=== PATIENT | female | born 2000 | race Caucasian/White ===

== ENCOUNTER → 2023-09-05 | Outpatient (CLI) | payer BC ==
--- NOTE | 2023-09-07 09:11 | MR ---
EXAMINATION TYPE: MR lumbar spine wo con DATE OF EXAM: 09/05/2023 9:05 PM CLINICAL INDICATION:Female, 23 years old with history of G834; PHH, Low back pain, history of surgery COMPARISON: None TECHNIQUE: Multi planar, multi sequence imaging was performed utilizing: T1-weighted, T2-weighted, a nd turbo inversion recovery imaging of the lumbar spine. IV Contrast: cc . (None if empty) FINDINGS: Alignment: The lumbar vertebral bodies have preserved heights and alignment. Cord: The conus medullaris and the distal spinal cord appear unremarkable with regards to their signa l intensity and morphology. Bones/Discs: High T1/T2 signal low L1 vertebral body vertebral body hemangioma. Transitional vertebra e at L5 with sacralization of L5 vertebrae. Mild degeneration changes throughout the spine with osteo phyte formation and facet joint arthropathy. Intervertebral disc signal is maintained. No abnormal in version recovery signal to suggest bony edema. Post surgical soft tissues posteriorly and near the le tatyana of L3-L4. T12-L1: No evidence of significant spinal canal stenosis or neural foraminal stenosis. L1-L2: No evidence of significant spinal canal stenosis or neural foraminal stenosis. L2-L3: No evidence of significant spinal canal stenosis or neural foraminal stenosis. L3-L4: No evidence of significant spinal canal stenosis or neural foraminal stenosis. L4-L5: Disc bulge and facet joint arthropathy result in mild spinal canal and mild bilateral neural f oraminal stenosis. L5-S1: Sacralization of the L5 vertebrae. The disc has a rounded posterior morphology without signifi cant spinal canal stenosis. Facet joint arthropathy with mild bilateral neural foraminal stenosis. No significant spinal canal or neural foraminal stenosis in the remainder of the visualized levels. Other findings: None. IMPRESSION: 1. 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 2. No definitive evidence of disc herniation or significant spinal canal stenosis. 3. Mild disc degeneration with associated osteoarthritic changes.
== END | disposition home or self-care (01) ==
LOC: RADMRIMAIN 20:45
PROVIDERS: ATTEND Neurological Surgery
DX: M51.36 Other intervertebral disc degeneration, lumbar region (principal); Q76.49 Other congenital malformations of spine, not associated with scoliosis; G83.4 Cauda equina syndrome
CPT/HCPCS: 72148

== ENCOUNTER → 2023-12-08 | Outpatient (CLI) | payer BC ==
--- NOTE | 2023-12-08 08:37 | US ---
EXAMINATION TYPE: US abdomen limited DATE OF EXAM: 12/08/2023 COMPARISON: NONE CLINICAL INDICATION: Female, 23 years old with history of R10.11 RUQ PAIN; RUQ pain x 1 week TECHNIQUE: Grayscale and color Doppler imaging of the right upper quadrant was performed. 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 No evidence for acute process. 2. Hepatic steatosis. [facility], , 12/08/2023 8:34 AM
== END | disposition home or self-care (01) ==
LOC: RADUSWWP 07:26
PROVIDERS: ATTEND Family Medicine
DX: K76.0 Fatty (change of) liver, not elsewhere classified (principal)
CPT/HCPCS: 76705

== ENCOUNTER 2024-08-08 17:51 | Inpatient (IN) | payer BC ==
--- NOTE | 2024-08-08 18:51 | ED ---
Psych HPI - General Source: patient, family, RN notes reviewed Mode of arrival: ambulatory <Scott Anaya - Last Filed: 08/08/24 18:49> <Javad Casey - Last Filed: 08/09/24 10:16> <Asia Durham - Last Filed: 08/09/24 13:23> - General Chief Complaint: Psychiatric Symptoms Stated Complaint: Mental Evaluation Time Seen by Provider: 08/08/24 18:06 - History of Present Illness Initial Comments: Quick note: This is a calm and cooperative 24-year-old female with history of anxiety/depression presenting for suicidal ideation x 1 week. Patient states she is planned of suffocating herself with objects like a pillow to kill herself. Endorses history of similar thoughts. States she recently stopped taking her meds and was asked by her father to take her medications today. Patient denies HI, visual/auditory hallucinations, prior mental health admission. States she is does not currently speak to a therapist. (Scott Medeiros) 24-year-old female who presents emergency department reporting depression. Patient states that she has longstanding depression which is treated by her primary care doctor. Started after she had back surgery and has chronic neuropathy in her left lower extremity. States over the past couple of days she has had worsening symptoms. She did recently stop her medications but tonight her father made sure that she did take them. She had friends call and check on her. She reported that she was suicidal with a plan to suffocate herself. This information was then relayed to the patient's mother and it was recommended that the patient come into the hospital for evaluation. She does not see a therapist. Patient has never been hospitalized. She denies actively at this time that she did anything to harm herself. No concern for . No history of substance abuse. No other alleviating, precipitating or modifying factors (Asia Durham) - Related Data Home Medications Medication Instructions Recorded Confirmed DULoxetine HCL [Cymbalta] 30 mg PO DAILY 08/09/24 08/09/24 Gabapentin [Neurontin] 100 mg PO BID 08/09/24 08/09/24 norgestimate-ethinyl estradioL 1 tab PO DAILY 08/09/24 08/09/24 [Loretta 0.25-0.035 mg Tablet] Allergies Allergy/AdvReac Type Severity Reaction Status Date / Time Penicillins AdvReac Unknown Verified 08/09/24 10:48 Review of Systems ROS Other: All systems not noted in ROS Statement are negative. <Scott Anaya - Last Filed: 08/08/24 18:49> ROS Other: All systems not noted in ROS Statement are negative. <CaseyJavad - Last Filed: 08/09/24 10:16> ROS Other: All systems not noted in ROS Statement are negative. <Asia Durham - Last Filed: 08/09/24 13:23> ROS Statement: Those systems with pertinent positive or pertinent negative responses have been documented in the HPI. Past Medical History Past Medical History: No Reported History History of Any Multi-Drug Resistant Organisms: None Reported Past Surgical History: No Surgical Hx Reported Past Psychological History: ADD/ADHD Smoking Status: Never smoker Past Alcohol Use History: None Reported Past Drug Use History: None Reported <Scott Anaya - Last Filed: 08/08/24 18:49> General Exam Limitations: no limitations <Scott Anaya - Last Filed: 08/08/24 18:49> General appearance: alert, in no apparent distress Head exam: Present: atraumatic, normocephalic, normal inspection Eye exam: Present: normal appearance, PERRL, EOMI. Absent: scleral icterus, conjunctival injection, periorbital swelling ENT exam: Present: normal exam, mucous membranes moist Neck exam: Present: normal inspection. Absent: tenderness, meningismus, lymphadenopathy Respiratory exam: Present: normal lung sounds bilaterally. Absent: respiratory distress, wheezes, rales, rhonchi, stridor Cardiovascular Exam: Present: regular rate, normal rhythm, normal heart sounds. Absent: systolic murmur, diastolic murmur, rubs, gallop, clicks GI/Abdominal exam: Present: soft, normal bowel sounds. Absent: distended, tenderness, guarding, rebound, rigid Extremities exam: Present: normal inspection, full ROM, normal capillary refill. Absent: tenderness, pedal edema, joint swelling, calf tenderness Back exam: Present: normal inspection Neurological exam: Present: alert, oriented X3, CN II-XII intact Psychiatric exam: Present: depressed Skin exam: Present: warm, dry, intact, normal color. Absent: rash <Asia Durham - Last Filed: 08/09/24 13:23> - General Exam Comments Initial Comments: Visual Physical Exam Vital signs reviewed General: Well-appearing, nontoxic, no acute distress. Head: Normocephalic, atraumatic Eyes: PERRLA, EOMI ENT: Airway patent Chest: Nonlabored breathing Skin: No visual rash, normal skin tone Neuro: Alert and oriented 3 Musculoskeletal: No gross abnormalities (Scott Anaya) Course Vital Signs 08/08/24 08/08/24 08/09/24 18:02 21:44 09:00 Temperature 98.5 F 98.9 F Pulse Rate 120 H 115 H 97 Respiratory 18 16 16 Rate Blood Pressure 156/125 167/111 125/89 O2 Sat by Pulse 98 97 99 Oximetry Medical Decision Making <Scott Anaya - Last Filed: 08/08/24 18:49> <Javad Casey - Last Filed: 08/09/24 10:16> <Asia Durham - Last Filed: 08/09/24 13:23> - Medical Decision Making I completed the quick note portion of this chart signed ANGUS Blackwell (Scott Anaya) EPS nurse evaluated the patient and determined the patient need to be admitted patient will be admitted to our psychiatric unit. (Javad Casey) Was pt. sent in by a medical professional or institution (LISSA Turcios, CYCLE DIRECTOR, urgent care, hospital, or [facility]...) When possible be specific @ -No Did you speak to anyone other than the patient for history (EMS, parent, family, police, friend...)? What history was obtained from this source @ -I spoke with the patient's mother for history Did you review nursing and triage notes (agree or disagree)? Why? @ -I reviewed and agree with nursing and triage notes Were old charts reviewed (outside hosp., previous admission, EMS record, old EKG, old radiological studies, urgent care reports/EKG's, [facility] records)? Report findings @ -No old charts were reviewed Differential Diagnosis (chest pain, altered mental status, abdominal pain women, abdominal pain men, vaginal bleeding, weakness, fever, dyspnea, syncope, headache, dizziness, GI bleed, back pain, seizure, CVA, palpatations, mental health, musculoskeletal)? @ -Differential Mental Health Depression, anxiety, bipolar, psychosis, schizophrenia, borderline personality, situational depression, adjustment disorder, behavioral disorder, brain tumor, malingering, substance abuse, encephalopathy, medication reaction, dementia, hypothyroidism, degenerative neurologic disorder, lupus.... This is not meant to be all-inclusive list EKG interpreted by me (3pts min.). @ -Not done X-rays interpreted by me (1pt min.). @ -None done CT interpreted by me (1pt min.). @ -None done U/S interpreted by me (1pt. min.). @ -None done What testing was considered but not performed or refused? (CT, X-rays, U/S, labs )? Why? @ -None What meds were considered but not given or refused? Why? @ -None Did you discuss the management of the patient with other professionals (professionals i.e. , PA, CYCLE DIRECTOR, lab, RT, psych nurse, social service worker, immigration lawyer, teacher, radio electronics officer, disability case manager)? Give summary @ -Spoke with EPS who will evaluate the patient in the morning Was smoking cessation discussed for >3mins.? @ -No Was critical care preformed (if so, how long)? @ -No Were there social determinants of health that impacted care today? How? (Homelessness, low income, unemployed, alcoholism, drug addiction, transp ortation, low edu. Level, literacy, decrease access to med. care, senior living, rehab)? @ -No Was there de-escalation of care discussed even if they declined (Discuss DNR or withdrawal of care, Hospice)? DNR status @ -No What co-morbidities impacted this encounter? (DM, HTN, Smoking, COPD, CAD, Cancer, CVA, ARF, Chemo, Hep., AIDS, mental health diagnosis, sleep apnea, morbid obesity)? @ -Chronic back pain Was patient admitted / discharged? Hospital course, mention meds given and route, prescriptions, significant lab abnormalities, going to OR and other pertinent info. @ -Upon arrival patient seen and evaluated in bed 14. Thorough history and physical exam was performed. Patient is suicidal with a plan. She is cleared for EPS evaluation. EPS is no longer available tonight and therefore will evaluate the patient in the morning. Likely the patient will be in adamant. Patient awaiting evaluation in stable condition Undiagnosed new problem with uncertain prognosis? @ -No Drug Therapy requiring intensive monitoring for toxicity (Heparin, Nitro, Insulin, Cardizem)? @ -No Were any procedures done? @ -No Diagnosis/symptom? @ -Acute depression, suicidal ideations Acute, or Chronic, or Acute on Chronic? @ -Acute Uncomplicated (without systemic symptoms) or Complicated (systemic symptoms)? @ -Complicated Side effects of treatment? @ -No Exacerbation, Progression, or Severe Exacerbation? @ -No Poses a threat to life or bodily function? How? (Chest pain, USA, DC, pneumonia, PE, COPD, DKA, ARF, appy, cholecystitis, CVA, Diverticulitis, Homicidal, Suicidal, threat to staff... and all critical care pts) @ -Yes as patient is suicidal (Asia Durham) - Lab Data Lab Results 08/08/24 08/08/24 08/09/24 Range/Units 20:22 20:22 07:08 Urine HCG, Qual Not Detected (Not Detectd) Urine Opiates Screen Not Detected (NotDetected) Ur Oxycodone Screen Not Detected (NotDetected) Urine Methadone Screen Not Detected (NotDetected) Ur Barbiturates Screen Not Detected (NotDetected) U Tricyclic Antidepress Not Detected (NotDetected) Ur Phencyclidine Scrn Not Detected (NotDetected) Ur Amphetamines Screen Not Detected (NotDetected) U Methamphetamines Scrn Not Detected (NotDetected) U Benzodiazepines Scrn Not Detected (NotDetected) Urine Cocaine Screen Not Detected (NotDetected) U Marijuana (THC) Screen Not Detected (NotDetected) SARS-CoV-2 (PCR) Not Detected (Not Detectd) Disposition <Scott Anaya - Last Filed: 08/08/24 18:49> <Javad Casey - Last Filed: 08/09/24 10:16> Is patient prescribed a controlled substance at d/c from ED?: No <Asia Durham - Last Filed: 08/09/24 13:23> Clinical Impression: Depression Disposition: TRANSFER TO PSYCH HOSP/UNIT Condition: Stable
[2024-08-08 20:51] LABS: Barbiturate Screen,Urine Not Detected (NotDetected); Benzodiazepines Screen,Urine Not Detected (NotDetected); Opiate Screen,Urine Not Detected (NotDetected); Oxycodone Screen, Urine Not Detected (NotDetected); Phencyclidine Screen,Urine Not Detected (NotDetected); Tricyclic Antidepressant,Urine Not Detected (NotDetected); Urn Cannabinoid Scrn Not Detected (NotDetected)
[2024-08-09] MEDS: IBUPROFEN 400 MG TAB PO STA (09:10)
[2024-08-09] MEDS ORDERED: MAGNESIUM HYDROXIDE 2,400 MG/30 ML CUP PO PRN (10:37)
[2024-08-09] MEDS ORDERED: MAG HYDROX/AL HYDROX/SIMETH 355 ML BOTTLE PO PRN (10:37)
[2024-08-09] MEDS ORDERED: OLANZapine 10 MG VIAL IM PRN (10:39)
[2024-08-09] MEDS: IBUPROFEN 600 MG TAB PO PRN (12:51)
[2024-08-09] MEDS: DULoxetine HCL 60 MG CAPSULE.DR PO SCH (12:51)
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
[2024-08-09 13:29] LABS: Bilirubin,Urine Negative (Negative); Blood,Urine Large (Negative); Color,Urine Colorless; Glucose,Urine (UA) Negative (Negative); Ketones,Urine Negative (Negative); Leukocyte Esterase,Urine Negative (Negative); Mucus,Urine Rare /hpf; Nitrite,Urine Negative (Negative); PH, Urine 5.0 (5.0-8.0); Protein,Urine Negative (Negative); RBC,Urine 63 /hpf (0-5); Specific Gravity,Urine 1.019 (1.001-1.035); Squamous Epithelial Cell,Urine <1 /hpf (0-4); Urobilinogen,Urine <2.0 mg/dL (<2.0); WBC,Urine 6 /hpf (0-5)
--- NOTE | 2024-08-09 13:59 | P.MDCNMH ---
History of Present Illness H&P Date: 08/09/24 History of present illness; patient is a 24-year-old lady with past medical history significant for back surgery who presented to the ER for psychiatric evaluation. Patient stated that she has been feeling very depressed for the last few weeks. Patient said that she tried to suffocate herself and the light. Patient denies any auditory or visualizations. Denies any homicidal thoughts. Patient stated all this started after her back surgery and she has been very depressed after that. Because of the suicidal thoughts, patient came to the ER Initial lab work done in the ER showed UA negative for any infection Urine drug screen was negative COVID-19 not detected Patient admitted to inpatient psych REVIEW OF SYSTEMS: CONSTITUTIONAL: No fever, no malaise, no fatigue. HEENT: No recent visual problems or hearing problems. Denied any sore throat. CARDIOVASCULAR: No chest pain, orthopnea, PND, no palpitations, no syncope. PULMONARY: No shortness of breath, no cough, no hemoptysis. GASTROINTESTINAL: No diarrhea, no nausea, no vomiting, no abdominal pain. NEUROLOGICAL: No headaches, no weakness, no numbness. HEMATOLOGICAL: Denies any bleeding or petechiae. GENITOURINARY: Denies any burning micturition, frequency, or urgency. MUSCULOSKELETAL/RHEUMATOLOGICAL: Denies any joint pain, swelling, or any muscle pain. ENDOCRINE: Denies any polyuria or polydipsia. The rest of the 14-point review of systems is negative. PHYSICAL EXAMINATION: GENERAL: The patient is alert and oriented x3, not in any acute distress. Well developed, well nourished. HEENT: Pupils are round and equally reacting to light. EOMI. No scleral icterus. No conjunctival pallor. Normocephalic, atraumatic. No pharyngeal erythema. No thyromegaly. CARDIOVASCULAR: S1 and S2 present. No murmurs, rubs, or gallops. PULMONARY: Chest is clear to auscultation, no wheezing or crackles. ABDOMEN: Soft, nontender, nondistended, normoactive bowel sounds. No palpable organomegaly. MUSCULOSKELETAL: No joint swelling or deformity. EXTREMITIES: No cyanosis, clubbing, or pedal edema. NEUROLOGICAL: Gross neurological examination did not reveal any focal deficits. SKIN: No rashes. Assessment and plan major depression Suicidal thoughts History of back surgery Monitor vital signs Elopement precaution Suicide precaution Continue psych meds per psychiatry team Labs and medication were reviewed.. Continue same treatment. Continue with symptomatic treatment. Resume home medication. Monitor labs and vitals. DVT and GI prophylaxis. Further recommendations as per clinical course of the patient Dictation was produced using [employer] dictation software. please excuse any grammatical, word or spelling errors. Past Medical History Past Medical History: No Reported History Additional Past Medical History / Comment(s): BACK PAIN, surgery September 2022, numbness in bilateral legs History of Any Multi-Drug Resistant Organisms: None Reported Past Surgical History: Back Surgery Additional Past Surgical History / Comment(s): September 2022 Back surgery Past Anesthesia/Blood Transfusion Reactions: No Reported Reaction Past Psychological History: ADD/ADHD Smoking Status: Never smoker Past Alcohol Use History: None Reported Past Drug Use History: None Reported Medications and Allergies Home Medications Medication Instructions Recorded Confirmed Type DULoxetine HCL [Cymbalta] 30 mg PO DAILY 08/09/24 08/09/24 History Gabapentin [Neurontin] 100 mg PO BID 08/09/24 08/09/24 History norgestimate-ethinyl estradioL 1 tab PO DAILY 08/09/24 08/09/24 History [Loretta 0.25-0.035 mg Tablet] Allergies Allergy/AdvReac Type Severity Reaction Status Date / Time Penicillins AdvReac Unknown Verified 08/09/24 10:48 Physical Exam Vitals: Vital Signs Temp Pulse Pulse Resp BP BP Pulse Ox 08/09/24 11:46 98.0 F 84 17 145/90 98 08/09/24 09:00 98.9 F 97 16 125/89 99 08/08/24 21:44 115 H 16 167/111 97 08/08/24 18:02 98.5 F 120 H 18 156/125 98 Intake and Output 08/08/24 08/09/24 08/09/24 22:59 06:59 14:59 Other: Weight 115.666 kg 118.019 kg Cranial Nerve Examination - Cranial Nerves Cranial Nerve II- Optic: Intact (Cranial nerves II to XII intact) Cranial Nerve III- Oculomotor: Intact Cranial Nerve IV- Trochlear: Intact Cranial Nerve V- Trigeminal: Intact Cranial Nerve - Abducens: Intact Cranial Nerve VII- Facial: Intact Cranial Nerve VIII- Auditory: Intact Cranial Nerve IX- Glossopharyngeal: Intact Cranial Nerve X- Vagus: Intact Cranial Nerve XI- Accessory: Intact Cranial Nerve XII- Hypoglossal: Intact Results Labs: Abnormal Lab Results - Last 24 Hours (Table) 08/08/24 Range/Units 20:22 Urine Blood Large H (Negative) Urine RBC 63 H (0-5) /hpf Urine WBC 6 H (0-5) /hpf Urine Mucus Rare H (None) /hpf
[2024-08-09] MEDS: LORazepam 1 MG TAB PO PRN (16:41)
[2024-08-09] MEDS: GABAPENTIN 100 MG CAP PO SCH ×2 (20:48)
[2024-08-10 07:27] LABS: Basophils # (A) 0.02 10*3/uL (0.00-0.10); Basophils % (A) 0.2 %; Eosinophils # (A) 0.26 10*3/uL (0.04-0.35); Eosinophils % (A) 3.0 %; HCT 37.6 % (37.2-46.3); HGB 12.0 g/dL (12.0-15.0); Lymphocytes # (A) 2.71 10*3/uL (0.90-5.00); Lymphocytes % (A) 31.2 %; MCH 27.6 pg (27.0-32.0); MCHC 31.9 g/dL (32.0-37.0); MCV 86.4 fL (80.0-97.0); Monocytes # (A) 0.52 10*3/uL (0.20-1.00); Monocytes % (A) 6.0 %; Neutrophils # (A) 5.12 10*3/uL (1.80-7.70); Neutrophils % (A) 59.0 %; Platelet Count 238 10*3/uL (140-440); RBC 4.35 10*6/uL (4.10-5.20); RDW 14.3 % (11.5-14.5); WBC 8.68 10*3/uL (4.50-10.00)
[2024-08-10 07:44] LABS: ALT 18 U/L (4-34); AST 21 U/L (14-36); African American GFR (CKD) >90 (>60 ml/min/1.73 sqM); Albumin 3.6 g/dL (3.5-5.0); Alkaline Phosphatase 104 U/L (38-126); Anion Gap 7 mmol/L; Blood Urea Nitrogen 13 mg/dL (7-17); Calcium 8.8 mg/dL (8.4-10.2); Carbon Dioxide 25 mmol/L (22-30); Chloride 106 mmol/L (98-107); Glucose 99 mg/dL (74-99); Non-African American GFR(CKD) >90 (>60 ml/min/1.73 sqM); Potassium 4.4 mmol/L (3.5-5.1); Sodium 138 mmol/L (137-145); Total Protein 6.5 g/dL (6.3-8.2)
[2024-08-10] MEDS: MILI PO SCH (08:55)
[2024-08-10] MEDS: NICOTINE 14MG/24HR PATCH TRANSDERM SCH (08:57)
[2024-08-10] MEDS: OLANZapine ODT 5 MG TAB PO PRN (12:53)
--- NOTE | 2024-08-10 14:03 | P.PN ---
Progress Note - Text Progress Note Date: 08/10/24 Chief complaint: Suicidal thoughts Interval History: Patient was seen in her room sleeping. An attempt was made to wake the patient up however she would not wake up. I tried shaking her leg she still did not wake up. At this time we will forego the interview. The patient did go to groups and per staff no adverse events overnight. The patient was seen earlier in the day walking in the amato. Mental Status Exam: General Appearance: Patient appears to be stated age is alert, directable, and cooperative. Behavior: Patient is calmly seated without any agitated behavior. Speech: Patient's speech is fluent and nonpressured. Mood/Affect: Mood is improving mildly, affect is congruent and constricted. Suicidality/Homicidality: Patient denies having any suicidal or homicidal ideation intent or plan. Perceptions: Patient denies any visual hallucinations and denies any auditory hallucinations Though content/process: There is no evidence of any delusional thought content and thought process is linear and goal-directed. Memory and concentration: AOX3, grossly intact for the purposes of this session Judgment and insight: Improving mildly Diagnosis: Major depressive disorder recurrent severe Generalized anxiety disorder Posttraumatic stress disorder ADHD per history Assessment: Will reevaluate the patient tomorrow patient's sleep and it is felt this is therapeutic at this point. PLAN: -Patient is admitted under voluntary status to MHU for stabilization of psychiatric symptoms and safety. Patient has signed adult voluntary form and medication consent and is placed in patient's chart. -Medications : Continue Cymbalta 60 mg take 1 capsule by mouth once daily for depression/anxiety -Ativan and Haldol PRN for agitation/aggression -Patient was informed of the risks, benefits and side effects of the medication and patient verbally consented to taking the medications. Patient signed med consent form and was placed in chart. -Internal Medicine consult to perform medical evaluation and physical. -NRT -not needed as patient does not smoke -SW on board for discharge planning. Encourage patient to participate in groups to work on coping skills.
--- NOTE | 2024-08-11 10:13 | P.PN ---
Progress Note - Text Progress Note Date: 08/11/24 Chief complaint: Suicidal thoughts Interval History: The patient was paged to the front end developer and presented after which we walked to the office for the interview. The patient notes that she was having a rough day yesterday with anxiety due to previously working on a locked unit. She was given Zyprexa Zydis and was out for most of the day. Today she is feeling calmer but still has moderate depression. She denies any ongoing suicidal thoughts. She notes yesterday her father visited her on the unit and her mother talked to her on the phone. She feels that her sleep was good as well as appetite but her energy and concentration were fair. She notes that she was having some rough dreams yesterday specifically feeling that she was in a dark place. She denies any side effects with the medication and is ambiguous about any changes. Mental Status Exam: General Appearance: Patient appears to be stated age is alert, directable, and cooperative. Behavior: Patient is calmly seated without any agitated behavior. Speech: Patient's speech is fluent and nonpressured. Mood/Affect: Mood is improving mildly, affect is congruent and constricted. Suicidality/Homicidality: Patient denies having any suicidal or homicidal ideation intent or plan. Perceptions: Patient denies any visual hallucinations and denies any auditory hallucinations Though content/process: There is no evidence of any delusional thought content and thought process is linear and goal-directed. 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 Will continue to hospitalize for observation and medication management. PLAN: -Patient is admitted under voluntary status to MHU for stabilization of psychiatric symptoms and safety. Patient has signed adult voluntary form and medication consent and is placed in patient's chart. -Medications : Continue Cymbalta 60 mg take 1 capsule by mouth once daily for depression/anxiety -Ativan and Haldol PRN for agitation/aggression -Patient was informed of the risks, benefits and side effects of the medication and patient verbally consented to taking the medications. Patient signed med consent form and was placed in chart. -Internal Medicine consult to perform medical evaluation and physical. -NRT -not needed as patient does not smoke -SW on board for discharge planning. Encourage patient to participate in groups to work on coping skills.
[2024-08-11] MEDS: ACETAMINOPHEN TAB 325 MG TAB PO PRN (20:13)
--- NOTE | 2024-08-12 12:19 | P.PN ---
Progress Note - Text Progress Note Date: 08/12/24 Chief complaint: Suicidal thoughts Interval History: The patient was paged to the front loader residential driver and presented after which we walked to the office for the interview. Patient notes that her depression and anxiety are mild. She denies any ongoing suicidal thoughts. She notes that she continues to have the bizarre dreams but is sleeping at night. She denies any problems with appetite, energy or concentration. She did fall out of her bed last night but did not hit her head or had any bruises per se. She is attending groups and overall she is feeling "okay". Conference call was done with the patient's mother in which the patient's mother had noted that she had gone into the patient's phone and found which she turned "inappropriate photos". She discussed this in front of the patient and after which the patient seemed extremely uncomfortable. Additionally the mother was informed that this is more of a conversation had with the patient [id number] versus over the phone. She denied any illicit material on the phone. Mental Status Exam: General Appearance: Patient appears to be stated age is alert, directable, and cooperative. Behavior: Patient is calmly seated without any agitated behavior. Speech: Patient's speech is fluent and nonpressured. Mood/Affect: Mood is improving mildly, affect is congruent and constricted. Suicidality/Homicidality: Patient denies having any suicidal or homicidal ideation intent or plan. Perceptions: Patient denies any visual hallucinations and denies any auditory hallucinations Though content/process: There is no evidence of any delusional thought content and thought process is linear and goal-directed. Memory and concentration: AOX3, grossly intact for the purposes of this session Judgment and insight: Improving mildly Diagnosis: Major depressive disorder recurrent severe Generalized anxiety disorder Posttraumatic stress disorder ADHD per history Assessment: Currently it is unclear whether the patient will be ready for discharge tomorrow after speaking with her mother on the phone. She was informed if she starts feeling like she might harm herself to inform staff. PLAN: -Patient is admitted under voluntary status to MHU for stabilization of psychiatric symptoms and safety. Patient has signed adult voluntary form and m edication consent and is placed in patient's chart. -Medications : Continue Cymbalta 60 mg take 1 capsule by mouth once daily for depression/anxiety -Ativan and Haldol PRN for agitation/aggression -Patient was informed of the risks, benefits and side effects of the medication and patient verbally consented to taking the medications. Patient signed med consent form and was placed in chart. -Internal Medicine consult to perform medical evaluation and physical. -NRT -not needed as patient does not smoke -SW on board for discharge planning. Encourage patient to participate in groups to work on coping skills.
[2024-08-12 20:56] VITALS: RESP 16
[2024-08-13 09:10] VITALS: BP 134/87; PULSE 109; TEMP 97.5
--- NOTE | 2024-08-13 12:47 | P.DS ---
Providers Date of admission: 08/09/24 10:33 Admission HPI: Admission note was completed by Dr. Acosta "The patient presented to the hospital voicing suicidal thoughts requesting help at this point. The patient notes that she had a past attempt 2 days ago by trying to suffocate herself. She notes that she explained this to a friend who called the police at this point she was encouraged to come to the hospital. She notes that she drove herself to the emergency room. She notes that she still has suicidal thoughts and feels that she might act on those thoughts if released today. She notes that most of her depression started 2 years ago after her back surgery. She notes currently that her depression over the last 2 weeks is 8/10 with 10 being worse and her anxiety is 9/10 with 10 being worse. She notes that she hardly slept last night but on average she gets 10 to 12 hours of sleep. She notes that she has no energy and that her appetite has been waxing and waning. She notes that her concentration is poor but suffers from ADHD diagnosed in the second grade. She notes that she feels helpless, hopeless and worthless. She notes bouts of crying and feelings of guilt. She denies any homicidal thoughts. The patient's father's guns are currently locked. " Hospital course: Upon admission to the unit patient was directable and agreeable to commence treatment and signed adult voluntary form. Patient got along well with other patients on the unit and followed unit protocol. Patient was compliant with the medications and denied any side effects throughout hospital course. Patient was started on on her home medications and the Cymbalta was increased to 60 mg. The patient did adapt well and attended groups on a regular basis. Patient spoke of her stressors and engaged in therapy both group and individual. Patient was also seen by medical team for history and physical exam. Throughout the course of the hospitalization patient gradually improved with regards to mood, anxiety, sleep and returned back to their baseline level of functioning became more future oriented with improved insight and judgment. On the day of discharge patient denied any suicidal or homicidal ideations intent or plan denied any auditory or visual hallucinations. Patient endorsed wanting to live for their health and family. The patient denied any access to guns or weapons. Patient denied any paranoia and did not endorse any delusions. Patient does not have a significant history of substance abuse. Patient was also counseled on the medications and need for regular compliance and was encouraged to follow-up with their outpatient appointment for mental health and also for primary care. Prior to discharge a family meeting will be arranged by school social worker to answer any questions and ensure safety upon discharge incuding making sure that guns/weapons are either removed from the home or locked away. Day of discharge patient denied any suicidal or homicidal ideations. She was able to voice a safety plan including 911 and [phone]. She notes mild depression and no anxiety. Patient plans to follow-up with mental health upon discharge. She will go back and live with her mother. Mental status exam: General Appearance: Patient appears to be her stated age is alert, pleasant, and cooperative. Patient is in no acute distress and has improved hygiene and grooming Behavior: Patient is calmly seated without any agitated behavior. Speech: Patient's speech is fluent and nonpressured. Mood/Affect: Patient reports their mood is "better good", affect is congruent and euthymic. Suicidality/Homicidality: Patient denies having any suicidal or homicidal ideation intent or plan. Perceptions: Patient denies any auditory or visual hallucinations. Though content/process: There is no evidence of any delusional thought content and thought process is linear and goal-directed. More future oriented Memory and concentration: AOX3, grossly intact for the purposes of this session. Can spell "WORLD" backwards correctly. Judgment and insight: Chronically poor, however has improved with guarded prognosis Diagnosis: Major depressive disorder recurrent severe Generalized anxiety disorder Posttraumatic stress disorder ADHD per history Plan: -Continue with discharge today as patient has improved and stabilized psychiatrically and is not currently an imminent threat to themself and/or others. -Continue medications: Cymbalta 60 mg take 1 capsule by mouth once daily for depression/anxiety -Patient was counseled on the need for medication compliance and appropriate follow-up at mental health and also primary care for medical issues. Patient verbalized understanding and agreed. -Social work to help coordinate patients discharge today arrange for and conduct family meeting to ensure safety upon discharge and answer any questions/concerns. also to ensure safe home environment that guns/weapons are either removed from the home or locked away. Social work also to arrange for patients follow up appointments with [facility] for psychiatric care along with follow up with primary care provider. -Patient counseled on abstaining from recreational drugs and marijuana and alcohol. Was informed/educated on the adverse effects on their physical and mental health. Patient verbally agreed and understood. -Patient was instructed to return to the hospital or seek immediate medical care if their psychiatric or medical symptoms do worsen or reoccur. Expected date of discharge: 08/13/24 Attending physician: Lorna Vides MD Consults: 08/09/24 10:37 Consult Physician Routine Consulting Provider: [facility] Consult Reason/Comments: H&P Do you want consulting provider notified?: Yes Primary care physician: Patti Izquierdo - Discharge Diagnosis(es) (1) Depression Current Visit: Yes Status: Chronic Priority: Medium Plan - Discharge Summary Discharge Rx Participant: No New Discharge Prescriptions: No Action norgestimate-ethinyl estradioL [Loretta 0.25-0.035 mg Tablet] 1 tab PO DAILY Gabapentin [Neurontin] 100 mg PO BID DULoxetine HCL [Cymbalta] 30 mg PO DAILY Discharge Medication List DULoxetine HCL [Cymbalta] 30 mg PO DAILY 08/09/24 [History] Gabapentin [Neurontin] 100 mg PO BID 08/09/24 [History] norgestimate-ethinyl estradioL [Loretta 0.25-0.035 mg Tablet] 1 tab PO DAILY 08/09/24 [History] Follow up Appointment(s)/Referral(s): [facility] [Outside] - 08/20/24 9:30 am (08/20 @ 09:30 paperwork please bring id and insurance card 08/20 @ 10:00 with Jhoanarafia Jacobleton ) Patti Izquierdo MD [Primary Care Provider] - 1-2 days Patient Instructions/Handouts: ADHD in Adults (DC), Depression (DC), Post Traumatic Stress Disorder (DC), Generalized Anxiety Disorder (ED) Activity/Diet/Wound Care/Special Instructions: [facility] Discharge Info Avoid the use of street drugs and alcohol. Take all medications as prescribed. When you are in need of refills on your medications, please contact your outpatient medical provider and/or outpatient psychiatrist. Please go to your scheduled outpatient appointments for aftercare treatment. If symptoms return or become worse, call the crisis line at or and/or visit the nearest emergency room for assistance. National Suicide and Crisis Lifeline - call or text 988.
== END 2024-08-13 14:58 | disposition home or self-care (01) | DRG 885 ==
LOC: EC 17:51 → 3MHU 08-09 10:33
PROVIDERS: ADMIT Psychiatry & Neurology Psychiatry; ATTEND Psychiatry & Neurology Psychiatry
DX: F33.2 Major depressive disorder, recurrent severe without psychotic features (principal); R45.851 Suicidal ideations; G83.4 Cauda equina syndrome; Z11.52 Encounter for screening for COVID-19; F41.1 Generalized anxiety disorder; F43.10 Post-traumatic stress disorder, unspecified; F90.9 Attention-deficit hyperactivity disorder, unspecified type; G62.9 Polyneuropathy, unspecified; Z62.810 Personal history of physical and sexual abuse in childhood; Z79.899 Other long term (current) drug therapy; Z91.128 Patient's intentional underdosing of medication regimen for other reason; Z88.0 Allergy status to penicillin
CPT/HCPCS: 80053; 80306; 81001; 81025; 82075; 83036; 84443; 85025; 87635; 99285